=== PATIENT | female | born 1990 | race African-American/Black ===

== ENCOUNTER 2020-06-30 08:25 | Emergency (ER) | payer OTHER ==
[~2020-06-30] VITALS: Ht 160 cm; Wt 67.1 kg
--- NOTE | 2020-06-30 08:40 | NUR ---
BIBBRIGHTTER FOR ANXIETY. PT TOOK ACID LAST WED, STILL HAVING THE EFFECT OF IT, TO ER BED 10. HOOKED TO MONITOR, DR MESA AT BEDSIDE
[2020-06-30] MEDS ORDERED: LORAZEPAM 1 MG TABLET ONE (09:54)
[2020-06-30] MEDS ORDERED: LORAZEPAM 1 MG TABLET PO ONE (10:00)
--- NOTE | 2020-06-30 10:50 | NUR ---
Patient discharged to home with sister in stable condition. Written and verbal after care instructions given. Patient verbalizes understanding of instruction.
[2020-06-30 11:18] VITALS: BP 122/74
== END 2020-06-30 10:50 | disposition home or self-care (01) ==
LOC: ER 08:30
DX: F41.1 Generalized anxiety disorder (principal)